=== PATIENT | female | born 1940 | race Caucasian/White ===

== ENCOUNTER 2018-10-06 11:23 | Emergency (ER) | payer OTHER, MEDICAID ==
[~2018-10-06] VITALS: Ht 157.5 cm; Wt 54.4 kg
[2018-10-06 11:25] VITALS: BP_SYST 126
--- NOTE | 2018-10-06 11:30 | NUR ---
Note magi in ED - 10/06/18 at 1340 by SDEDTD Patient to ER bed 4 to olivia for evaluation. Side rails up. Report given to Daily Arnold
--- NOTE | 2018-10-06 11:45 | NUR ---
Patient to ER bed 4 to gown for evaluation. Side rails up. Report given to Daily HOWARD.
--- NOTE | 2018-10-06 12:35 | NUR ---
Patient presented to ER with left forehead laceration from mechanical fall today. Parient A&Ox4, pt ambulatory without assisted device. 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 Patient afebrile, respirations equal bilat. Patient states she was walking on sidewalk, she tripped and fell landing on her left side of head, pain 1/10. friend Yolie Higuera at bedside, helping with history and communication
--- NOTE | 2018-10-06 12:50 | NUR ---
ER at bedside examining patient.
--- NOTE | 2018-10-06 13:15 | NUR ---
Patient has a 4 cm laceration to left forehead. Dr. Grande applied marivel using sterile technique. Edges well approximated. Site cleansed with sterile water. Dressing of non-adhere dressing applied to site. No bleeding noted. Pt tolerated well.
[2018-10-06 13:27] LABS: HEMATOCRIT 46.7 % (36-48); HEMOGLOBIN 15.3 g/dL (12.0-16.0); RED BLOOD CELL COUNT(AUTO) 5.06 MIL/uL (4.2-6.2); WHITE BLOOD COUNT (AUTO) 7.7 K/uL (4.8-10.8)
[2018-10-06 13:28] LABS: ANION GAP 5 (5-15); BASOPHILS % (AUTO) 0.6 % (0.0-2.0); CHLORIDE 105 mmol/L (98-107); CREATININE 1.05 mg/dL (0.55-1.30); EOSINOPHILS % (AUTO) 0.7 % (0.0-4.0); GLUCOSE 91 mg/dL (70-99); LYMPHOCYTES # (AUTO) 2.7 K/uL (1.0-5.5); LYMPHOCYTES % (AUTO) 34.9 % (20.5-51.5); MEAN CORPUSCULAR HEMOGLOBIN 30 pg (27-31); MEAN CORPUSCULAR HGB CONC 33 % (32-36); MEAN CORPUSCULAR VOLUME 92 fL (79.0-98.0); MONOCYTES # (AUTO) 0.9 K/uL (0.0-1.0); MONOCYTES % (AUTO) 11.4 % (1.7-9.3); NEUTROPHILS % (AUTO) 52.4 % (40.0-70.0); PLATELET COUNT (AUTO) 182 K/uL (130-430); POTASSIUM 4.1 mmol/L (3.5-5.1); RED CELL DISTRIBUTION WIDTH 14.6 % (9.0-15.0); SODIUM SERUM 141 mmol/L (136-145); UREA NITROGEN, BLOOD 21 mg/dL (8-21)
[2018-10-06 13:35] LABS: ALANINE AMINOTRANSFERASE 166 U/L (12-78); ALBUMIN 2.8 g/dL (3.4-4.8); ASPARTATE AMINOTRANSFERASE 61 U/L (10-37); TOTAL BILIRUBIN 0.5 mg/dL (0.0-1.0)
[2018-10-06 14:05] VITALS: BP_SYST 126
--- NOTE | 2018-10-06 14:05 | NUR ---
Patient given written and verbal discharge instructions and verbalizes understanding. ER MD discussed with patient the results and treatment provided. Patient in stable condition. ID arm band removed. Rx of Acetaminophen given. Patient educated on pain management and to follow up with PMD. Pain Scale 0/10. Opportunity for questions provided and answered. Medication side effect fact sheet provided.
== END 2018-10-06 14:05 | disposition home or self-care (01) ==
LOC: SED 11:23
DX: S01.112A Laceration without foreign body of left eyelid and periocular area, initial encounter (principal); R03.0 Elevated blood-pressure reading, without diagnosis of hypertension; Z85.3 Personal history of malignant neoplasm of breast; Z88.1 Allergy status to other antibiotic agents; Z91.013 Allergy to seafood; Z91.018 Allergy to other foods; W01.198A Fall on same level from slipping, tripping and stumbling with subsequent striking against other object, initial encounter; Y93.89 Activity, other specified; Y92.89 Other specified places as the place of occurrence of the external cause; Y99.8 Other external cause status
CPT/HCPCS: 36415; 70450-TC; 70486-TC; 72125-TC; 80053; 85025; 85610-TC; 99284

== ENCOUNTER 2018-10-15 17:01 | Emergency (ER) | payer OTHER, MEDICAID ==
[~2018-10-15] VITALS: Ht 162.6 cm; Wt 58.1 kg
[2018-10-15 17:01] VITALS: BP_SYST 164
[2018-10-15] MEDS ORDERED: LIDOCAINE 1%, 20 ML MDV 20 ML ONE (18:51)
[2018-10-15] MEDS ORDERED: DIPH-TET-PERTUS Vaccine 0.5 ML VIAL (ADACEL) I.M. ONE (19:00)
[2018-10-15] MEDS ORDERED: MORPHINE 4 MG/ML INJ. SYRINGE IVP ONE (21:30)
[2018-10-15] MEDS ORDERED: MORPHINE 4 MG/ML INJ. SYRINGE IM ONE (22:45)
[2018-10-15] MEDS ORDERED: CLINDAMYCIN PHOSPHATE 300 MG/2 ML VIAL IM ONE (23:00)
[2018-10-16 02:08] VITALS: BP_SYST 171
== END 2018-10-16 02:08 | disposition home or self-care (01) ==
LOC: SED 17:01
DX: S02.2XXA Fracture of nasal bones, initial encounter for closed fracture (principal); S01.81XA Laceration without foreign body of other part of head, initial encounter; Z85.3 Personal history of malignant neoplasm of breast; Z88.1 Allergy status to other antibiotic agents; Z91.013 Allergy to seafood; Z91.018 Allergy to other foods; W01.0XXA Fall on same level from slipping, tripping and stumbling without subsequent striking against object, initial encounter; Y93.01 Activity, walking, marching and hiking; Y92.89 Other specified places as the place of occurrence of the external cause; Y99.8 Other external cause status
CPT/HCPCS: 12011; 70450; 70486; 73060; 73070; 90471; 90715; 96372; 99284; J2001; J2270; J3490